=== PATIENT | female | born 1975 ===

== ENCOUNTER 2018-04-07 05:30 | Emergency (ER) | payer OTHER ==
[2018-04-07 05:59] VITALS: O2SAT 99
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
[2018-04-07 08:05] LABS: BASO % 1.1 % (0.0-2.0); EOS # 0.2 K/uL (0.0-0.7); EOS % 4.9 % (0.0-4.0); HEMOGLOBIN 11.6 g/dL (12.0-16.0); LYMPH # 0.8 K/uL (1.0-4.3); LYMPH % 25.5 % (20.0-40.0); MEAN CELL VOLUME 87.1 fl (81.0-99.0); MEAN CORPUSCULAR HGB CONC 33.2 g/dL (33.0-37.0); MEAN PLATELET VOLUME 8.3 fl (7.2-11.7); MONO # 0.4 K/uL (0.0-0.8); NEUT # 1.8 K/uL (1.8-7.0); NEUT % 55.5 % (50.0-75.0); NRBC % 0.5 % (0.0-0.0); RED CELL DISTRIBUTION WIDTH 13.6 % (11.5-14.5); WHITE BLOOD COUNT 3.3 K/uL (4.8-10.8)
[2018-04-07 08:17] LABS: ALBUMIN 3.6 g/dL (3.5-5.0); ALT/SGPT 64 U/L (9-52); AST/SGOT 66 U/L (14-36); BLOOD UREA NITROGEN 19 mg/dl (7-17); CALCIUM 10.9 mg/dL (8.4-10.2); GFR NON-AFRICAN AMERICAN > 60
[2018-04-07 17:52] VITALS: BP 110/70; PULSE 76; RESP 17; TEMP 97.8
== END 2018-04-07 11:00 | disposition home or self-care (01) ==
LOC: H.ER 05:30
DX: T25.021A Burn of unspecified degree of right foot, initial encounter (principal); T25.022A Burn of unspecified degree of left foot, initial encounter; X11.8XXA Contact with other hot tap-water, initial encounter; Y92.000 Kitchen of unspecified non-institutional (private) residence as the place of occurrence of the external cause
CPT/HCPCS: 80053; 81025; 83735; 85025; 96374; 99283; J1885